=== PATIENT | male | born 1990 | race African-American/Black ===

== ENCOUNTER 2016-09-09 15:57 | Emergency (ER) | payer SELFPAY ==
[~2016-09-09] VITALS: Ht 175.3 cm; Wt 68.0 kg
[2016-09-09 16:12] VITALS: BP 109/62
--- NOTE | 2016-09-09 16:35 | PHYS DOC ---
Past Medical History Past Medical History: No Pertinent History Past Surgical History: No Surgical History Alcohol Use: None Drug Use: None Adult General Chief Complaint Chief Complaint: ANKLE PROBLEM HPI HPI Patient is a 25 year old male presents to the emergency department with a history of left lateral ankle pain after a pallet fell and hit the ankle. Patient states this happened last night at work. He has increase pain with ambulation. Denies numbness or tingling to the foot. Patient denies taking medication for pain. Review of Systems Review of Systems Constitutional: Denies fever or chills [] Eyes: Denies change in visual acuity, redness, or eye pain [] HENT: Denies nasal congestion or sore throat [] Respiratory: Denies cough or shortness of breath [] Cardiovascular: No additional information not addressed in HPI [] GI: Denies abdominal pain, nausea, vomiting, bloody stools or diarrhea [] : Denies dysuria or hematuria [] Musculoskeletal: Denies back pain. Left lateral ankle pain Integument: Denies rash or skin lesions [] Neurologic: Denies headache, focal weakness or sensory changes [] Endocrine: Denies polyuria or polydipsia [] Allergies Allergies Allergies Coded Allergies Type Severity Reaction Last Updated Verified No Known Drug Allergies 07/01/15 No Physical Exam Physical Exam Constitutional: Well developed, well nourished, no acute distress, non-toxic appearance. [] HENT: Normocephalic, atraumatic, bilateral external ears normal, oropharynx moist, no oral exudates, nose normal. [] Eyes: PERRLA, EOMI, conjunctiva normal, no discharge. [] Neck: Normal range of motion, no tenderness, supple, no stridor. [] Cardiovascular:Heart rate regular rhythm Lungs & Thorax: no respiratory distress noted Skin: Warm, dry, no erythema, no rash. [] Back: No tenderness Extremities: No tenderness, no cyanosis, no clubbing, ROM intact, no edema. Peripheral pulses 2+ cap refill brisk < 2 seconds. Good sensation noted. No bruising or discoloration noted to the site, no swelling. Neurologic: Alert and oriented X 3, normal motor function, normal sensory function, no focal deficits noted. [] Psychologic: Affect normal, judgement normal, mood normal. [] Current Patient Data Vital Signs Vital Signs Date Time Temp Pulse Resp B/P (MAP) Pulse Ox O2 Delivery O2 Flow Rate FiO2 09/09/16 16:12 98.8 85 18 99 Room Air 98.8 EKG EKG [] Radiology/Procedures Radiology/Procedures [facility] [address] [place] [address] IMAGING REPORT Signed PATIENT: BENNY MASON ACCOUNT: [id number] : 1990 LOCATION: ER AGE: 25 SEX: M EXAM STATUS: PRE ER ORD. PHYSICIAN: CELE MURRAY APRN REASON: pain and injury left ankle PROCEDURE: ANKLE LEFT 3V INDICATION: pain and injury left ankle COMPARISON: None. IMPRESSION: 3 views left ankle without definite acute fracture or dislocation. DICTATED and SIGNED BY: MARLEE CABRALES MD DATE: 09/09/16 2307 CC: CELE MURRAY APRN; NO PCP ~ [] Course & Med Decision Making Course & Med Decision Making Pertinent Labs and Imaging studies reviewed. (See chart for details) X-ray negative for bony abnormality. Patient will have kassi wrap in place with recommendations to wear the kassi wrap for the next 7-10 days. Ice packs on 20 minutes and off 20 minutes several times a day. Elevation as much as possible. Ibuprofen for pain and discomfort. Patient was provided with orthopedic in 1 week. Signs and symptoms to return to the emergency department has been provided. Patient agrees with discharge instructions treatment regimen and followup recommendations. [] Dragon Disclaimer Dragon Disclaimer This electronic medical record was generated, in whole or in part, using a voice recognition dictation system. Departure Departure Impression: Primary Impression: Contusion of ankle, left Disposition: HOME, SELF-CARE Condition: STABLE Referrals: NO PCP (PCP) HECTOR COLEMAN MD Patient Instructions: Ankle Pain Additional Instructions: X-rays negative for bony abnormalities Ibuprofen for pain and discomfort Ice packs on 20 minutes and off 20 minutes several times a day Elevation as much as possible Wear the kassi wrap for the next 7-10 days Followup with orthopedic in 1 week Return to emergency department as needed for signs and symptoms that become worse. CELE MURRAY APRN Sep 09, 2016 16:35
--- NOTE | 2016-09-09 16:42 | RAD ---
INDICATION: pain and injury left ankle COMPARISON: None. IMPRESSION: 3 views left ankle without definite acute fracture or dislocation.
== END 2016-09-09 16:58 | disposition home or self-care (01) ==
LOC: ER 15:57
DX: S90.02XA Contusion of left ankle, initial encounter (principal); W01.198A Fall on same level from slipping, tripping and stumbling with subsequent striking against other object, initial encounter; Y93.89 Activity, other specified; Y92.69 Other specified industrial and construction area as the place of occurrence of the external cause; Y99.8 Other external cause status
CPT/HCPCS: 73610; 99284

== ENCOUNTER 2018-08-23 11:36 | Emergency (ER) | payer SELFPAY ==
[~2018-08-23] VITALS: Ht 175.3 cm; Wt 69.0 kg
[~2018-08-23 11:36] MED LIST: AMOX500C PO
[2018-08-23 11:55] VITALS: BP 135/87
[2018-08-23] MEDS ORDERED: DIPHTH,PERTUSS(ACELL),TET TOX 0.5 ML DISP.SYRIN. VAX IM ONE (12:15)
[2018-08-23] MEDS ORDERED: KETOROLAC 30 MG/ML VIAL. IM ONE (12:15)
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
== END 2018-08-23 12:54 | disposition home or self-care (01) ==
LOC: ER 11:36
DX: S60.221A Contusion of right hand, initial encounter (principal); S40.012A Contusion of left shoulder, initial encounter; Y04.1XXA Assault by human bite, initial encounter; Y93.89 Activity, other specified; Y92.89 Other specified places as the place of occurrence of the external cause; Y99.8 Other external cause status
CPT/HCPCS: 73130; 90471; 90715; 96372; 99284; J1885

== ENCOUNTER 2018-11-24 23:01 | Emergency (ER) | payer SELFPAY ==
[~2018-11-24] VITALS: Ht 175.3 cm; Wt 65.8 kg
[2018-11-25] MEDS ORDERED: IV NORMAL SALINE 1000ML BAG 1,000 ML IV ONE
[2018-11-25] MEDS ORDERED: fentaNYL PF VIAL 100 MCG/2 ML VIAL IVP ONE (00:15)
[2018-11-25 00:16] LABS: BASO # 0.1 x10^3/uL (0.0-0.2); BASO % 0 % (0-3); EOS # 0.1 x10^3/uL (0.0-0.7); EOS % 1 % (0-3); HEMATOCRIT 48.4 % (39.0-53.0); HEMOGLOBIN 16.2 g/dL (13.0-17.5); LYMPH # 1.7 x10^3/uL (1.0-4.8); LYMPH % 12 % (24-48); MEAN CORPUSCULAR HEMOGLOBIN 32 pg (25-35); MEAN CORPUSCULAR HGB CONC 34 g/dL (31-37); MEAN CORPUSCULAR VOLUME 94 fL (79-100); MONO # 0.6 x10^3/uL (0.0-1.1); MONO % 4 % (0-9); NEUT # 12.3 x10^3/uL (1.8-7.7); NEUT % 83 % (31-73); PLATELET COUNT 247 x10^3/uL (140-400); RED BLOOD COUNT 5.13 x10^6/uL (4.30-5.70); RED CELL DISTRIBUTION WIDTH 13.9 % (11.5-14.5); WHITE BLOOD COUNT 14.9 x10^3/uL (4.0-11.0)
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
[2018-11-25 00:27] LABS: CALCIUM 8.9 mg/dL (8.5-10.1); CREATININE 1.1 mg/dL (0.7-1.3); GFR 95.8; POTASSIUM 4.2 mmol/L (3.5-5.1)
[2018-11-25 00:32] LABS: ALBUMIN/GLOBULIN RATIO 1.3 (1.0-1.7); TOTAL BILIRUBIN 0.2 mg/dL (0.2-1.0); TOTAL PROTEIN 7.2 g/dL (6.4-8.2)
[2018-11-25 01:33] LABS: BILIRUBIN,URINE NEGATIVE (NEG); CLARITY,URINE CLEAR; COLOR,URINE YELLOW; NITRITE,URINE NEGATIVE (NEG); PH,URINE 5.5; PROTEIN,URINE NEGATIVE (NEG-TRACE); UROBILINOGEN,URINE 0.2 mg/dL (0.2 mg/dL)
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
[2018-11-25 01:39] LABS: BACTERIA,URINE 0 /HPF (0-FEW); BARBITURATES NEG (NEG); BENZODIAZEPINES NEG (NEG); CANNABINOIDS POS (NEG); COCAINE POS (NEG); HYALINE CASTS, URINE FEW /HPF; METHADONE NEG (NEG); OPIATES NEG (NEG); PHENCYCLIDINE NEG (NEG); RBC,URINE OCC /HPF (0-2); SQUAMOUS EPITHELIAL CELL,UR OCC /LPF
[2018-11-25 01:41] LABS: AMPHETAMINE/METHAMPHETAMINE NEG (NEG)
[2018-11-25 02:15] VITALS: BP 134/86
[2018-11-25] MEDS ORDERED: HYDR-3164 PO (02:21)
[2018-11-25] MEDS ORDERED: HYDROcodone/APAP 5/325MG 1 TAB TABLET PO ONE (02:30)
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
== END 2018-11-25 02:35 | disposition home or self-care (01) ==
LOC: ER 23:01
DX: S70.01XA Contusion of right hip, initial encounter (principal); S50.311A Abrasion of right elbow, initial encounter; S20.311A Abrasion of right front wall of thorax, initial encounter; R07.89 Other chest pain; R11.10 Vomiting, unspecified; Y04.0XXA Assault by unarmed brawl or fight, initial encounter; Y93.89 Activity, other specified; Y92.89 Other specified places as the place of occurrence of the external cause; Y99.8 Other external cause status
CPT/HCPCS: 36415; 70450; 71046; 71100; 72072; 72125; 73502; 80053; 80307; 81001; 85025; 96361; 96374; 99285; G0480; J3010; J7030

== ENCOUNTER 2020-01-30 07:35 | Emergency (ER) | payer SELFPAY ==
[~2020-01-30] VITALS: Ht 175.3 cm; Wt 70.5 kg
[~2020-01-30 07:35] MED LIST changes: +HYDR-3164 PO
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
[2020-01-30] MEDS ORDERED: TRAM-48 PO ×2 (09:08→09:12)
[2020-01-30 09:10] VITALS: BP 106/62
== END 2020-01-30 09:18 | disposition home or self-care (01) ==
LOC: ER 07:35
DX: S00.83XA Contusion of other part of head, initial encounter (principal); R60.0 Localized edema; Y08.89XA Assault by other specified means, initial encounter; Y93.89 Activity, other specified; Y92.89 Other specified places as the place of occurrence of the external cause; Y99.8 Other external cause status
CPT/HCPCS: 70450; 70486; 99285